=== PATIENT | male | born 1955 | race Caucasian/White ===

== ENCOUNTER 2016-11-08 14:06 | Inpatient (IN) | payer BC ==
[~2016-11-08] VITALS: Ht 175.3 cm; Wt 113.8 kg
[~2016-11-08 14:06] MED LIST: ASPI-664 PO; CLOP75TA27 PO; CRES10 PO; DIAZ-90 PO; GLYB1TAB3 PO; LANT3I SC; METO-448 PO; VALS1TAB64 PO
[2016-11-08] MEDS ORDERED: FAMOTIDINE 20 MG TAB PO STA (19:37)
[2016-11-08] MEDS ORDERED: ONDANSETRON 4 MG INJ IV STA ×2 (19:37→20:52)
[2016-11-08] MEDS ORDERED: LIDOCAINE/MYLANTA 40 ML BTL PO STA (19:37)
[2016-11-08] MEDS ORDERED: SOD CHLORIDE 0.9% 1,000 ML IV STA (19:37)
[2016-11-08] MEDS ORDERED: morphine 4 MG/ML VIAL IV STA ×2 (19:37→20:52)
[2016-11-08] MEDS ORDERED: BELLADONNA/PHENOBARBITAL TAB PO STA (19:37)
[2016-11-08 19:53] LABS: BASOPHILS % 0.2 % (0.0-2.0); EOSINOPHILS % 0.1 % (0.0-7.0); HEMATOCRIT 45.9 % (42.0-52.0); HEMOGLOBIN 15.6 g/dl (14.0-18.0); LYMPHOCYTES # 1.1 10^3/ul (0.8-2.9); LYMPHOCYTES % 11.5 % (15.0-51.0); MEAN CORPUSCULAR HEMOGLOBIN 29.4 pg (29.0-33.0); MEAN CORPUSCULAR HGB CONC 34.1 g/dl (32.0-37.0); MEAN CORPUSCULAR VOLUME 86.3 fl (82.0-101.0); MEAN PLATELET VOLUME 8.2 fl (7.4-10.4); MONOCYTE # 0.6 10^3/ul (0.3-0.9); NEUTROPHIL # 7.9 10^3/ul (1.6-7.5); NEUTROPHILS % 82.2 % (39.0-77.0); PLATELET COUNT 244 10^3/UL (140-440); RED BLOOD COUNT 5.32 10^6/ul (4.70-6.10); RED CELL DISTRIBUTION WIDTH 13.1 % (11.5-14.5); UNCORRECTED WBC 9.6 10^3/ul (4.8-10.8); WHITE BLOOD COUNT 9.6 10^3/ul (4.8-10.8)
[2016-11-08 19:54] LABS: CONDITION 1
[2016-11-08 20:05] LABS: ALBUMIN 4.6 g/dl (3.3-4.9); CHLORIDE 97 mmol/L (97-110)
[2016-11-08 20:06] LABS: POTASSIUM 4.7 mmol/L (3.5-5.1); SODIUM 141 mmol/L (135-144)
[2016-11-08 20:08] LABS: ALANINE AMINOTRANSFERASE 759 IU/L (13-69); ALBUMIN/GLOBULIN RATIO 1.35; ALKALINE PHOSPHATASE 270 IU/L (42-121); ANION GAP 21 (8-16); ASPARTATE AMINO TRANSFERASE 430 IU/L (15-46); BILIRUBIN,INDIRECT 1.3 mg/dl (0-1.1); BILIRUBIN,TOTAL 1.5 mg/dl (0.2-1.3); BLOOD UREA NITROGEN 17 mg/dl (7-20); CARBON DIOXIDE 28 mmol/L (21-31); CREATININE 0.85 mg/dl (0.61-1.24); GLUCOSE 309 mg/dl (70-220)
[2016-11-08 20:09] LABS: CALCIUM 9.8 mg/dl (8.4-10.2)
[2016-11-08 20:22] LABS: TROPONIN-I < 0.010 ng/ml (0.00-0.12)
--- NOTE | 2016-11-08 20:37 | RADRPT ---
PROCEDURE: XR Chest. CLINICAL INDICATION: Abdominal pain TECHNIQUE: Semi erect AP Portable chest. COMPARISON: No pertinent prior examinations were submitted for comparison. FINDINGS: The cardiomediastinal silhouette is normal. Lung volumes are diminished. No focal infiltrates are seen. The osseous structures are unremarkable. There is no intra-abdominal free air, assuming the p atient is positioned adequately upright. IMPRESSION: No acute findings. RPTAT: HIKT .Camden Burroughs MD, MD Date Time Electronically viewed and signed by .Camden Burroughs MD, on 11/08/2016 20:37 .T/
[2016-11-08] MEDS ORDERED: PIPER-TAZO 3.375 GM IV (PMX) 100 ML IVPB ONE (21:00)
[2016-11-08] MEDS ORDERED: SOD CHLORIDE 0.9% 1,000 ML IV ONE (21:00)
[2016-11-08] MEDS ORDERED: GLYB1TAB3 PO (21:13)
[2016-11-08] MEDS ORDERED: METO-448 PO (21:14)
[2016-11-08] MEDS ORDERED: ASPI-664 PO (21:14)
[2016-11-08] MEDS ORDERED: VALS1TAB78 PO (21:15)
[2016-11-08] MEDS ORDERED: CRES10 PO (21:16)
[2016-11-08] MEDS ORDERED: INSU300I SQ (21:17)
[2016-11-08] MEDS ORDERED: CLOP75TA4 PO (21:17)
[2016-11-08] MEDS ORDERED: TAMS0.4C2 PO (21:24)
[2016-11-08 21:55] VITALS: TEMP 98.3
--- NOTE | 2016-11-08 22:03 | RADRPT ---
PROCEDURE: Abdominal ultrasound, limited. CLINICAL INDICATION: Abdominal pain. TECHNIQUE: Multiple real-time images were acquired of the patient's right upper abdomen utilizing a high resolution transducer. Examination is limited due to the patient's body habitus. COMPARISON: None FINDINGS: The liver demonstrates increased echogenicity and size measuring 20.7 cm. There is no focal mass or intrahepatic biliary ductal dilatation. The portal vein is patent. The gallbladder is not distend ed. No gallstones are identified. There is no pericholecystic fluid or gallbladder wall thickening . The common bile duct measures 5.0 mm in maximal dimension. The pancreas is obscured by overlying bowel gas. No free fluid is identified. The right kidney is normal size and echogenicity measuring 14.6 cm. There is no focal renal mass or echogenic calculus identified. There is no obstructive uropathy. IMPRESSION: Enlarged liver with fatty infiltration. Pancreas obscured by overlying bowel gas. .Andrew Jones MD, Date Time Electronically viewed and signed by .Andrew Jones MD, MD on 11/08/2016 22:02 .T/
--- NOTE | 2016-11-08 22:10 | ERA ---
ER Documentation Chief Complaint Date/Time DATE: 11/08/16 TIME: 21:59 Chief Complaint SOB, EPIGASTRIC PAIN, HX OF IN PER PT HPI 61-year-old man complains of severe right upper quadrant epigastric abdominal pain with nausea, diaphoresis, and shortness of breath beginning the afternoon today after eating 2 tacos. He states he had a similar milder episode a few evenings ago after eating a meal as well, which resolved spontaneously. He denies regular episodes of abdominal pain, denies fevers or chills, no vomiting or diarrhea, no blood per rectum or melena, no complaints of chest pain. Patient denies cough, no calf or leg swelling, no headache or blurry vision. ROS All systems reviewed and are negative except as per history of present illness. Medications Home Meds Reported Medications Tamsulosin Hcl* (Tamsulosin Hcl*) 0.4 Mg Cap.er.24h, 0.4 MG PO DAILY, CAP 11/08/16 Insulin Glargine,Hum.rec.anlog (Jaylene Trejo) 300 Unit/1 Ml Insuln.pen, 50 UNIT SQ BID 11/08/16 Clopidogrel Bisulfate* (Clopidogrel Bisulfate*) 75 Mg Tablet, 75 MG PO DAILY, # 30 TAB 11/08/16 Rosuvastatin Calcium* (Crestor*) 10 Mg Tablet, 10 MG PO QHS, #30 TAB 11/08/16 Valsartan-Hydrochlorothiazide (Valsartan-HCTZ) 160-25 Mg Tablet, 1 TAB PO DAILY , #30 TAB 11/08/16 Aspirin* (Aspirin* EC) 81 Mg Tablet.dr, 81 MG PO DAILY, TAB 11/08/16 Metoprolol Tartrate* (Lopressor*) 25 Mg Tab, 25 MG PO BID, #60 TAB 11/08/16 Glyburide/Metformin HCl (Glucovance 5-500 mg Tablet) 1 Each Tablet, 1 EACH PO BID, TAB 11/08/16 Discontinued Reported Medications Rosuvastatin Calcium* (Crestor*) 10 Mg Tablet, 10 MG PO QHS, #30 TAB 11/16/15 Valsartan-Hydrochlorothiazide (Diovan HCT) 160-25 Mg Tablet, 1 TAB PO DAILY, TAB 11/16/15 Glyburide, Micro-Metformin Hcl (Glyburide-Metformin) 5-500 Tab, 1 TAB PO BID, TAB 11/16/15 Insulin Glargine* (Lantus*) 100 Unit/Ml Soln, 40 UNIT SC QPM, EA 08/31/15 Insulin Glargine* (Lantus*) 100 Unit/Ml Soln, 50 UNIT SC QAM, EA 08/31/15 Discontinued Scripts Diazepam* (Valium*) 5 Mg Tablet, 5 MG PO QHS Y for MUSCLE SPASMS, #10 TAB Prov:SUSANA FLORENCE DO 07/23/16 Metoprolol Tartrate* (Lopressor*) 25 Mg Tab, 25 MG PO Q12 for 30 Days, TAB Prov:Brenda CROWEZULEIMAJULIA Vega 09/03/15 Clopidogrel Bisulfate (Clopidogrel) 75 Mg Tab, 75 MG PO DAILY for 30 Days Prov:Brenda CROWEZULEIMAJULIA 09/03/15 Aspirin* (Aspirin* EC) 81 Mg Tabec, 81 MG PO DAILY for 30 Days Prov:NEPTALI CROWE 09/03/15 Allergies Allergies: Coded Allergies: No Known Allergy (Unverified , 11/08/16) PMhx/Soc Obesity, hypertension, diabetes mellitus, previous myocardial infarction, SVT, coronary artery disease with obstructive coronary artery lesion which previously could not be stented History of Surgery: No Anesthesia Reaction: No Hx Neurological Disorder: No Hx Respiratory Disorders: No Hx Cardiac Disorders: Yes (IN 2016, HTN, DYSLIPIDEMIA) Hx Psychiatric Problems: No Hx Miscellaneous Medical Probl: No Hx Alcohol Use: No Hx Substance Use: No Hx Tobacco Use: No Smoking Status: Former smoker FmHx Family History: No diabetes Physical Exam Vitals Vital Signs Date Time Temp Pulse Resp B/P Pulse Ox O2 Delivery O2 Flow Rate FiO2 11/08/16 21:55 98.3 103 17 151/89 95 Room Air 11/08/16 19:30 98.3 106 17 154/92 96 11/08/16 14:11 98.3 108 17 137/84 95 Physical Exam GENERAL: Well-developed, well-nourished, in pain, afebrile HEENT: Moist mucous membranes, pink conjunctiva, no cervical spine tenderness or step-off deformities, no goiter, no jaundice or icterus, extraocular movements intact without pain. No submandibular induration, and no pharyngeal erythema NEURO: Alert and oriented 3, cranial nerves II through XII intact bilaterally, pupils equal round reactive to light, no focal deficits or facial asymmetry, sensation intact distally Strength 5/5 in upper and lower extremities bilaterally CARDIAC: Tachycardic and regular, no murmurs rubs or gallops LUNGS: Clear bilaterally no wheezing crackles or stridor ABDOMEN: Protuberant tender abdomen, no rigidity or rebound, no psoas sign no obturator sign. Normoactive bowel sounds SKIN: Warm and dry to touch, no abrasions, contusions, or hematomas, no lacerations, no ecchymosis, no target lesions, and without ulcers EXTREMITIES: No clubbing cyanosis or edema, calves are bilaterally symmetrical, no Homans sign, no popliteal cord sign. Distal pulses equal and bilateral PSYCH: Normal affect without agitation or irritability Result Diagram: 11/08/16193911/08/161939 Results 24 hrs Laboratory Tests Test 11/08/16 19:40 Alanine Aminotransferase (ALT/SGPT) 759IU/L Albumin 4.6g/dl Albumin/Globulin Ratio 1.35 Alkaline Phosphatase 270IU/L Anion Gap 21 Aspartate Amino Transf (AST/SGOT) 430IU/L Basophils # 0.010^3/ul Basophils % 0.2% Blood Urea Nitrogen 17mg/dl Calcium Level 9.8mg/dl Carbon Dioxide Level 28mmol/L Chloride Level 97mmol/L Creatinine 0.85mg/dl Direct Bilirubin 0.20mg/dl Eosinophils # 0.010^3/ul Eosinophils % 0.1% Globulin 3.40g/dl Glucose Level 309mg/dl Hematocrit 45.9% Hemoglobin 15.6g/dl Indirect Bilirubin 1.3mg/dl Lipase 95956M/L Lymphocytes # 1.110^3/ul Lymphocytes % 11.5% Mean Corpuscular Hemoglobin 29.4pg Mean Corpuscular Hemoglobin Concent 34.1g/dl Mean Corpuscular Volume 86.3fl Mean Platelet Volume 8.2fl Monocytes # 0.610^3/ul Monocytes % 6.0% Neutrophils # 7.910^3/ul Neutrophils % 82.2% Nucleated Red Blood Cells # 0.010^3/ul Nucleated Red Blood Cells % 0.0/100WBC Platelet Count 60315^3/UL Potassium Level 4.7mmol/L Red Blood Count 5.3210^6/ul Red Cell Distribution Width 13.1% Sodium Level 141mmol/L Total Bilirubin 1.5mg/dl Total Protein 8.0g/dl Troponin I < 0.010ng/ml White Blood Count 9.610^3/ul Current Medications Medications (Trade) Dose Ordered Sig/Lorenzo Route PRN Reason Start Time Stop Time Status Last Admin Dose Admin Sodium Chloride (NS) 1,000 ml @ 1,000 mls/hr Q1H STAT IV 11/08/16 19:37 11/08/16 20:36 DC 11/08/16 19:57 Morphine Sulfate (morphine) 4 mg ONCE STAT IV 11/08/16 19:37 11/08/16 19:39 DC 11/08/16 19:51 Ondansetron HCl (Zofran Inj) 4 mg ONCE STAT IV 11/08/16 19:37 11/08/16 19:39 DC 11/08/16 19:51 Famotidine (Pepcid) 40 mg ONCE STAT PO 11/08/16 19:37 11/08/16 19:39 DC 11/08/16 19:51 Miscellaneous Medication (Gi Cocktail (2)) 40 ml ONCE STAT PO 11/08/16 19:37 11/08/16 19:39 DC 11/08/16 19:51 Belladonna/ Phenobarbital () 2 tab ONCE STAT PO 11/08/16 19:37 11/08/16 19:39 DC 11/08/16 19:51 Morphine Sulfate (morphine) 4 mg ONCE STAT IV 11/08/16 20:52 11/08/16 20:56 DC 11/08/16 21:02 Ondansetron HCl 4 mg 4 mg ONCE STAT IV 11/08/16 20:52 11/08/16 20:56 DC 11/08/16 21:02 Sodium Chloride 1,000 ml @ 1,000 mls/hr Q1H ONCE IV 11/08/16 21:00 11/08/16 21:59 DC 11/08/16 21:15 Piperacillin Sod/ Tazobactam Sod (Zosyn 3.375gm/ 100 ml (Pmx)) 100 ml @ 200 mls/hr ONCE ONCE IVPB 11/08/16 21:00 11/08/16 21:29 DC 11/08/16 21:14 Procedures/MDM IV line was established patient was placed on cardiac exercise physiologist rhythm strip revealed a sinus tachycardia at about 110 bpm with upright P and T waves. Patient was afebrile. EKG performed, read by me revealed a sinus tachycardia 108 bpm, normal axis, narrow QRS complex, no concerning ST elevations or depressions noted. Chest X-ray 1V Interpreted by me: Soft Tissue: No acute abnormalities Bones: No acute abnormalities Mediastinum/Cardiac Silhouette/Lungs: No acute abnormalities I administered 1 L normal saline intravenously, GI cocktail 50 cc p.o., famotidine 40 mg p.o., morphine 4 mg IV, and Zofran 4 mg IV with good effect. For continued pain the patient was given another dose of morphine 4 mg IV, Zofran 4 mg IV and a second liter of normal saline bolus. CBC was unremarkable, electrolytes revealed dehydration and hyperglycemia, BUN/ creatinine ratio was elevated at 17/0.9, liver function tests were abnormal with elevated AST ALT levels and lipase over 10,000. Alkaline phosphatase elevated at 270. Troponin was negative. Critical Care: Time: 37 minutes, this was time separate from other procedures. Treatments/Evaluations: Close monitoring and treatment of unstable vital signs, cardiorespiratory, and neurologic status, while maintaining tight balance of fluid, respiratory, and cardiac interventions. Gallbladder ultrasound was performed revealing shadowing concerning for gallstones although due to body habitus imaging was difficult no obvious pericholecystic fluid or gallstones are noted. Please refer to radiologist dictation for full report. CT scan of the abdomen and pelvis revealed a acute pancreatitis with inflammatory changes. Please refer to radiologist dictation for full report. Patient also received Zosyn 3.375 g IV. Surgical consultation was obtained with on-call surgeon, I spoke to him regarding the patient's presentation, symptomatology, and labs. He kindly agreed to consult the patient. Patient will be admitted to hospitalist. Departure Diagnosis: Primary Impression: Pancreatitis Qualified Code: K85.90 - Acute pancreatitis, unspecified complication status, unspecified pancreatitis type Additional Impressions: Abdominal pain Qualified Code: R10.13 - Epigastric pain Transaminitis Dehydration Condition: AMY Banks MD Nov 08, 2016 22:10
--- NOTE | 2016-11-08 22:33 | RADRPT ---
PROCEDURE: CT abdomen and pelvis without contrast. CLINICAL INDICATION: Epigastric pain TECHNIQUE: CT scan of the abdomen and pelvis without contrast was performed on a multislice CT [facility] utilizing axial imaging from the lung bases through the pubis symphysis. The patient was scann ed without intravenous contrast. Sagittal and coronal reformatted images were made. The CTDIvol is 22.07 mGy and the DLP is 1472.87 mGycm. One of the following 3 dose reduction techniques were used during this CT examination: automated exp osure control; adjustment of the mA and /or kV according to patient size; or use of iterative recons truciton technique. COMPARISON: CT abdomen pelvis 09/02/2015 FINDINGS: The lung bases are remarkable for bibasilar discoid atelectasis. The heart size is normal. Vascula r calcifications are present of the coronary arteries. No pericardial or pleural effusion is presen t. Diffuse fatty infiltration of the liver is noted without focal lesions and mild hepatomegaly is pres ent. A punctate calcification is noted which measures 3 mm in the anterior segment of the right lob e compatible with prior exposure granulomatous disease. The visualized spleen is normal. The pancre as demonstrates peripancreatic inflammation and edema involving the body and tail of the pancreas. This is compatible with acute pancreatitis. No evidence for pseudocysts or masses are present . The visualized gallbladder is normal. The bilateral adrenal glands are normal. The kidneys demonstrat e no evidence for hydroureteronephrosis or nephroureterolithiasis. The aorta demonstrates vascular calcifications without evidence for aneurysmal dilatation. The visualized bowel demonstrates mild diverticulosis without evidence for acute diverticulitis or a ppendicitis. The visualized pelvis demonstrates marked enlargement of the prostate gland with prostatic calcifica tions present. AP dimension is 5.5 cm x 6.8 cm in transverse dimensions. The urinary bladder is ma rkedly distended. No evidence for ascites or pneumoperitoneum is present. The imaged osseous structures demonstrate degenerative changes of the bilateral sacroiliac joints an d the imaged spine. IMPRESSION: 1. Acute peripancreatic edema and inflammation compatible with acute pancreatitis. No evidence for pseudocysts are present. 2. Mild diffuse fatty infiltration of the liver and hepatomegaly. 3. Marked prostatic enlargement measuring 5.5 cm AP by 6.8 cm in transverse dimensions. Recommend correlation with prostate-specific antigen and follow-up. 4. Mild degenerative changes of the imaged spine 5. Mild atherosclerotic vascular disease A call report was made to JAY REYES at 11/08/2016 10:28:40 PM following the completion of the e xamination by the undersigned. RPTAT: HDC .Gloria Marquez MD, Date Time Electronically viewed and signed by .Gloria Marquez MD, on 11/08/2016 22:32 .C/
[2016-11-08 23:15] VITALS: BP 140/77; PULSE 105; RESP 20; Ht 175.3 cm; Wt 113.8 kg
[2016-11-08] MEDS ORDERED: ONDANSETRON 4 MG INJ IV PRN (23:30)
[2016-11-08] MEDS: SOD CHLORIDE 0.9% 1,000 ML IV SCH (23:37)
[2016-11-08] MEDS: morphine 4 MG/ML VIAL IV PRN (23:38)
[2016-11-08] MEDS: FAMOTIDINE 20 MG INJ IV SCH (23:38)
[2016-11-09] MEDS: INSULIN ASPART [NOVOLOG] 3 ML PEN SC SCH ×5 (00:11→20:15)
[2016-11-09] MEDS: ACCUCHECK XX SCH (02:00)
[2016-11-09] MEDS ORDERED: ACCUCHECK XX SCH (02:00)
[2016-11-09] MEDS: morphine 4 MG/ML VIAL IV PRN ×2 (03:08→21:36)
[2016-11-09] MEDS: SOD CHLORIDE 0.9% 1,000 ML IV SCH ×3 (07:44→20:18)
[2016-11-09 07:45] VITALS: BP 137/79; RESP 20
[2016-11-09] MEDS ORDERED: metFORMIN 500 MG TAB PO SCH (08:00)
[2016-11-09] MEDS: INSULIN GLARGINE [LANtus] 3 ML PEN SC SCH (09:00)
[2016-11-09] MEDS ORDERED: CLOPIDOGREL 75 MG TAB PO SCH (09:00)
[2016-11-09] MEDS ORDERED: VALSARTAN 160 MG TAB PO SCH (09:00)
[2016-11-09] MEDS ORDERED: HYDROCHLOROTHIAZIDE 25 MG TAB PO SCH (09:00)
[2016-11-09] MEDS: METOPROLOL 25 MG TAB PO SCH ×2 (09:15→20:14)
[2016-11-09] MEDS: TAMSULOSIN (SR) 0.4 MG CAP PO SCH (09:16)
[2016-11-09] MEDS: ASPIRIN (EC) 81 MG TAB PO SCH (09:16)
[2016-11-09] MEDS: FAMOTIDINE 20 MG INJ IV SCH ×2 (09:16→20:14)
[2016-11-09 09:44] LABS: HAAIG REFLEX REFLEX FILED
--- NOTE | 2016-11-09 09:53 | CONS ---
Date/Time of Note Date/Time of Note DATE: 11/09/16 TIME: 09:46 Assessment/Plan Assessment/Plan Chief Complaint/Hosp Course 61-year-old obese male with acute pancreatitis * Etiology includes gallstones versus hypertriglyceridemia versus idiopathic * CT and ultrasound negative for gallstones or signs of acute cholecystitis. * Recommend MRCP to evaluate for gallstones and choledocholithiasis * Continue nothing by mouth, IV fluid hydration, pain control * Monitor LFTs and lipase level The case was discussed with the patient and the nurse at the bedside. Further recommendations will be made based on patient's clinical course and results of diagnostic studies. Problems: Consultation Date/Type/Reason Admit Date/Time Nov 08, 2016 at 21:16 Date of Consultation: Nov 09, 2016 Type of Consultation: GENERAL SURGERY Reason for Consultation Abdominal pain Hx of Present Illness Patient is an obese 61-year-old [place] male who presented to the emergency room complaining of a 1 day history of abdominal pain. He describes the pain as being located in the epigastric area. He denies any nausea/vomiting, diarrhea/ constipation, or fever/chills. On arrival to the emergency room he was found to have a lipase level of 10,246. His LFTs were also elevated. He had an ultrasound which was negative for gallstones. A CT scan of the abdomen and pelvis showed findings consistent with acute pancreatitis. There were no gallstones or gallbladder wall thickening on CT scan. He currently states his pain is improved. He denies any heavy drinking. The patient has a history of coronary artery disease and myocardial infarction status post angioplasty. He is on aspirin and Plavix. He also has a history of diabetes. A 14 point review of systems was conducted and was negative except for that which was mentioned in the history of present illness. Past Medical History Obesity, hypertension, diabetes mellitus, previous myocardial infarction, SVT, coronary artery disease with obstructive coronary artery lesion which previously could not be stented Past Surgical History Past Surgical Hx: other (sinus surgery) Social History Alcohol Use: rarely Smoking Status: Former smoker Exam/Review of Systems Vital Signs Vitals Vital Signs Date Time Temp Pulse Resp B/P Pulse Ox O2 Delivery O2 Flow Rate FiO2 11/09/16 07:45 98.8 106 20 137/79 92 11/08/16 23:15 Room Air Intake and Output 11/08/16 11/08/16 11/09/16 15:00 23:00 07:00 Intake Total 625 ml Output Total 400 ml Balance 225 ml Exam GENERAL: Obese, Awake, alert, oriented 3. No acute distress. SKIN: No jaundice. HEENT: PERRLA, EOMI, No Scleral Icterus NECK: Supple without JVD CARDIOVASCULAR: S1S2, regular rate and rhythm. No murmurs appreciated. RESPIRATORY: Clear to auscultation bilaterally. ABDOMEN: Obese, Soft, bowel sounds present, nondistended, there is minimal epigastric tenderness to deep palpation. There is no rebound or guarding. There is no evidence of diffuse peritonitis. EXTREMITIES: Free range of motion 4. No cyanosis, edema, or clubbing. NEUROLOGIC: Cranial nerves II-XII are intact. Sensation is intact grossly. Results Result Diagram: 11/08/16193911/08/161939 Results 24 hrs Laboratory Tests Test 11/08/16 19:40 11/08/16 23:29 11/09/16 02:16 11/09/16 04:35 Alanine Aminotransferase (ALT/SGPT) 759 H Albumin 4.6 Albumin/Globulin Ratio 1.35 Alkaline Phosphatase 270 H Anion Gap 21 H Aspartate Amino Transf (AST/SGOT) 430 H Basophils # 0.0 Basophils % 0.2 Blood Urea Nitrogen 17 Calcium Level 9.8 Carbon Dioxide Level 28 Chloride Level 97 Creatinine 0.85 Direct Bilirubin 0.20 Eosinophils # 0.0 Eosinophils % 0.1 Globulin 3.40 H Glucose Level 309 H Hematocrit 45.9 Hemoglobin 15.6 Indirect Bilirubin 1.3 H Lipase 84232 H Lymphocytes # 1.1 Lymphocytes % 11.5 L Mean Corpuscular Hemoglobin 29.4 Mean Corpuscular Hemoglobin Concent 34.1 Mean Corpuscular Volume 86.3 Mean Platelet Volume 8.2 Monocytes # 0.6 Monocytes % 6.0 Neutrophils # 7.9 H Neutrophils % 82.2 H Nucleated Red Blood Cells # 0.0 Nucleated Red Blood Cells % 0.0 Platelet Count 244 Potassium Level 4.7 Red Blood Count 5.32 Red Cell Distribution Width 13.1 Sodium Level 141 Total Bilirubin 1.5 H Total Protein 8.0 Troponin I < 0.010 White Blood Count 9.6 Bedside Glucose 230 H 198 Hemoglobin A1c 10.1 H Test 11/09/16 09:12 11/09/16 09:15 Bedside Glucose 155 Hepatitis B Core Total Antibody Pending Hepatitis B Surface Antigen Pending Hepatitis C Antibody Pending Medications Medications Current Medications Morphine Sulfate (morphine) 4 mg Q4H PRN IV PAIN Last administered on 03:08; Admin Dose 4 MG; Start 11/08/16 at 23:30 Famotidine (Pepcid Iv) 20 mg Q12 IV Last administered on 11/09/16 09:16; Admin Dose 20 MG; Start 11/08/16 at 23:30 Ondansetron HCl 4 mg 4 mg Q6H PRN IV NAUSEA AND/OR VOMITING Last administered on 11/08/16 23:47; Admin Dose 4 MG; Start 11/08/16 at 23:30 Sodium Chloride (NS) 1,000 ml @ 125 mls/hr Q8H IV Last administered on 07:44; Admin Dose 125 MLS/HR; Start 11/08/16 at 23:30 Diagnostic Test (Pha) (Accucheck) 1 ea 02 XX Last administered on 11/09/16 02: 00; Admin Dose 1 EA; Start 11/09/16 at 02:00 Aspirin (Halfprin) 81 mg DAILY PO Last administered on 11/09/16 09:16; Admin Dose 81 MG; Start 11/09/16 at 09:00 Clopidogrel Bisulfate (plaVIX) 75 mg DAILY PO Last administered on 11/09/16 09 :16; Admin Dose 75 MG; Start 11/09/16 at 09:00 Metoprolol Tartrate (Lopressor) 75 mg BID PO Last administered on 11/09/16 09: 15; Admin Dose 75 MG; Start 11/09/16 at 09:00 Tamsulosin HCl (Flomax) 0.4 mg DAILY PO Last administered on 11/09/16 09:16; Admin Dose 0.4 MG; Start 11/09/16 at 09:00 Valsartan (Diovan) 160 mg DAILY PO Last administered on 11/09/16 09:15; Admin Dose 160 MG; Start 11/09/16 at 09:00 Insulin Glargine (Lantus) 12 unit QAM SC ; Start 11/09/16 at 09:00 Hydrochlorothiazide (Hydrochlorothiazide) 25 mg DAILY PO Last administered on 09:16; Admin Dose 25 MG; Start 11/09/16 at 09:00 Procedures Procedures PROCEDURE: Abdominal ultrasound, limited. CLINICAL INDICATION: Abdominal pain. TECHNIQUE: Multiple real-time images were acquired of the patient's right upper abdomen utilizing a high resolution transducer. Examination is limited due to the patient's body habitus. COMPARISON: None FINDINGS: The liver demonstrates increased echogenicity and size measuring 20.7 cm. There is no focal mass or intrahepatic biliary ductal dilatation. The portal vein is patent. The gallbladder is not distended. No gallstones are identified. There is no pericholecystic fluid or gallbladder wall thickening. The common bile duct measures 5.0 mm in maximal dimension. The pancreas is obscured by overlying bowel gas. No free fluid is identified. The right kidney is normal size and echogenicity measuring 14.6 cm. There is no focal renal mass or echogenic calculus identified. There is no obstructive uropathy. IMPRESSION: Enlarged liver with fatty infiltration. Pancreas obscured by overlying bowel gas. .Andrew Jones MD, MD Date Time Electronically viewed and signed by .Andrew Jones MD, MD on 11/08/2016 22:02 .T/ CC: AMY THOMPSON MD PROCEDURE: CT abdomen and pelvis without contrast. CLINICAL INDICATION: Epigastric pain TECHNIQUE: CT scan of the abdomen and pelvis without contrast was performed on a multislice CT scanner utilizing axial imaging from the lung bases through the pubis symphysis. The patient was scanned without intravenous contrast. Sagittal and coronal reformatted images were made. The CTDIvol is 22.07 mGy and the DLP is 1472.87 mGycm. One of the following 3 dose reduction techniques were used during this CT examination: automated exposure control; adjustment of the mA and /or kV according to patient size; or use of iterative reconstruciton technique. COMPARISON: CT abdomen pelvis 09/02/2015 FINDINGS: The lung bases are remarkable for bibasilar discoid atelectasis. The heart size is normal. Vascular calcifications are present of the coronary arteries. No pericardial or pleural effusion is present. Diffuse fatty infiltration of the liver is noted without focal lesions and mild hepatomegaly is present. A punctate calcification is noted which measures 3 mm in the anterior segment of the right lobe compatible with prior exposure granulomatous disease. The visualized spleen is normal. The pancreas demonstrates peripancreatic inflammation and edema involving the body and tail of the pancreas. This is compatible with acute pancreatitis. No evidence for pseudocysts or masses are present . The visualized gallbladder is normal. The bilateral adrenal glands are normal. The kidneys demonstrate no evidence for hydroureteronephrosis or nephroureterolithiasis. The aorta demonstrates vascular calcifications without evidence for aneurysmal dilatation. The visualized bowel demonstrates mild diverticulosis without evidence for acute diverticulitis or appendicitis. The visualized pelvis demonstrates marked enlargement of the prostate gland with prostatic calcifications present. AP dimension is 5.5 cm x 6.8 cm in transverse dimensions. The urinary bladder is markedly distended. No evidence for ascites or pneumoperitoneum is present. The imaged osseous structures demonstrate degenerative changes of the bilateral sacroiliac joints and the imaged spine. IMPRESSION: 1. Acute peripancreatic edema and inflammation compatible with acute pancreatitis. No evidence for pseudocysts are present. 2. Mild diffuse fatty infiltration of the liver and hepatomegaly. 3. Marked prostatic enlargement measuring 5.5 cm AP by 6.8 cm in transverse dimensions. Recommend correlation with prostate-specific antigen and follow-up. 4. Mild degenerative changes of the imaged spine 5. Mild atherosclerotic vascular disease A call report was made to JAY REYES at 11/08/2016 10:28:40 PM following the completion of the examination by the undersigned. RPTAT: HDC .Gloria Marquez MD, MD Date Time Electronically viewed and signed by .Gloria Marquez MD, MD on 11/08/2016 22: 32 .C/ CC: AMY THOMPSON MD, MICHAEL A. MD Nov 09, 2016 09:53
[2016-11-09 09:58] LABS: BASOPHILS % 0.1 % (0.0-2.0); EOSINOPHILS % 0.3 % (0.0-7.0); HEMATOCRIT 41.7 % (42.0-52.0); HEMOGLOBIN 14.3 g/dl (14.0-18.0); LYMPHOCYTES # 0.9 10^3/ul (0.8-2.9); LYMPHOCYTES % 10.5 % (15.0-51.0); MEAN CORPUSCULAR HEMOGLOBIN 29.6 pg (29.0-33.0); MEAN CORPUSCULAR HGB CONC 34.2 g/dl (32.0-37.0); MEAN CORPUSCULAR VOLUME 86.8 fl (82.0-101.0); MONOCYTE # 0.5 10^3/ul (0.3-0.9); MONOCYTES % 5.7 % (0.0-11.0); NEUTROPHIL # 7.2 10^3/ul (1.6-7.5); NEUTROPHILS % 83.4 % (39.0-77.0); PLATELET COUNT 220 10^3/UL (140-440); RED BLOOD COUNT 4.81 10^6/ul (4.70-6.10); RED CELL DISTRIBUTION WIDTH 12.9 % (11.5-14.5); UNCORRECTED WBC 8.7 10^3/ul (4.8-10.8); WHITE BLOOD COUNT 8.7 10^3/ul (4.8-10.8)
[2016-11-09 09:59] LABS: ALBUMIN 3.8 g/dl (3.3-4.9); CHOL/HDL RATIO 5.3 RATIO
[2016-11-09 10:00] LABS: POTASSIUM 4.1 mmol/L (3.5-5.1)
[2016-11-09 10:02] LABS: ALBUMIN/GLOBULIN RATIO 1.22; BILIRUBIN,INDIRECT 0.9 mg/dl (0-1.1); BILIRUBIN,TOTAL 0.9 mg/dl (0.2-1.3); CREATININE 0.84 mg/dl (0.61-1.24); TOTAL PROTEIN 6.9 g/dl (6.1-8.1)
[2016-11-09 10:03] LABS: CALCIUM 9.1 mg/dl (8.4-10.2)
[2016-11-09 10:06] LABS: CONDITION 1
[2016-11-09] MEDS ORDERED: SOD CHLORIDE 0.9% 1,000 ML IV ONE (10:30)
[2016-11-09 10:31] LABS: PROSTATE SPECIFIC ANTIGEN 0.7 ng/ml (0.0-4.0)
--- NOTE | 2016-11-09 11:00 | PN ---
Date/Time of Note Date/Time of Note DATE: 11/09/16 TIME: 10:57 Assessment/Plan VTE Prophylaxis VTE Prophylaxis Intervention: LMWH Lines/Catheters IV C[facility] (from [facility]): Saline Lock Assessment/Plan Chief Complaint/Hosp Course Assessment/plan 1. Acute pancreatitis, ukn etio.. Consider DCing HCTZ vs autoimmune. MRCP pending. Stable, try diet tomorrow. 2. Chronic coronary artery disease/pci; continue aspirin Plavix 3. Hypertension, DC hctz 4. Metabolic syndrome 5. Ho SVT Problems: Subjective 24 Hr Interval Summary Free Text/Dictation Hospitalist coverage: Less pain, no vomiting. No dyspnea. Denies alcohol. No previous pancreatitis. No new medications. On hctz. No family history of pancreatitis. Father with colon cancer. Exam/Review of Systems Vital Signs Vitals Vital Signs Date Time Temp Pulse Resp B/P Pulse Ox O2 Delivery O2 Flow Rate FiO2 11/09/16 07:45 98.8 106 20 137/79 92 11/08/16 23:15 Room Air Intake and Output 11/08/16 11/08/16 11/09/16 15:00 23:00 07:00 Intake Total 625 ml Output Total 400 ml Balance 225 ml Exam Constitutional: alert Respiratory: clear to auscultation Cardiovascular: regular rate and rhythm (no murmur rub gallop) Gastrointestinal: non-tender (bowel sounds diminished, nondistended. No R R G. Obese. No flank ecchymosis.), soft Extremities: other (no edema) Results Result Diagram: 11/09/16 0915 11/09/16 0915 Results 24 hrs Laboratory Tests Test 11/08/16 19:40 11/08/16 23:29 11/09/16 02:16 11/09/16 04:35 Alanine Aminotransferase (ALT/SGPT) 759 H Albumin 4.6 Albumin/Globulin Ratio 1.35 Alkaline Phosphatase 270 H Anion Gap 21 H Aspartate Amino Transf (AST/SGOT) 430 H Basophils # 0.0 Basophils % 0.2 Blood Urea Nitrogen 17 Calcium Level 9.8 Carbon Dioxide Level 28 Chloride Level 97 Creatinine 0.85 Direct Bilirubin 0.20 Eosinophils # 0.0 Eosinophils % 0.1 Globulin 3.40 H Glucose Level 309 H Hematocrit 45.9 Hemoglobin 15.6 Indirect Bilirubin 1.3 H Lipase 56649 H Lymphocytes # 1.1 Lymphocytes % 11.5 L Mean Corpuscular Hemoglobin 29.4 Mean Corpuscular Hemoglobin Concent 34.1 Mean Corpuscular Volume 86.3 Mean Platelet Volume 8.2 Monocytes # 0.6 Monocytes % 6.0 Neutrophils # 7.9 H Neutrophils % 82.2 H Nucleated Red Blood Cells # 0.0 Nucleated Red Blood Cells % 0.0 Platelet Count 244 Potassium Level 4.7 Red Blood Count 5.32 Red Cell Distribution Width 13.1 Sodium Level 141 Total Bilirubin 1.5 H Total Protein 8.0 Troponin I < 0.010 White Blood Count 9.6 Bedside Glucose 230 H 198 Hemoglobin A1c 10.1 H Test 11/09/16 09:12 11/09/16 09:15 Bedside Glucose 155 Alanine Aminotransferase (ALT/SGPT) 499 H Albumin 3.8 Albumin/Globulin Ratio 1.22 Alkaline Phosphatase 192 H Anion Gap 16 Aspartate Amino Transf (AST/SGOT) 146 #H Basophils # 0.0 Basophils % 0.1 Blood Urea Nitrogen 16 Calcium Level 9.1 Carbon Dioxide Level 28 Chloride Level 103 Cholesterol Level 129 Cholesterol/HDL Ratio 5.3 Creatinine 0.84 Direct Bilirubin 0.00 # Eosinophils # 0.0 Eosinophils % 0.3 Globulin 3.10 Glucose Level 160 # HDL Cholesterol 24 L Hematocrit 41.7 L Hemoglobin 14.3 Hepatitis B Core Total Antibody Pending Hepatitis B Surface Antigen NEGATIVE Hepatitis C Antibody Pending Indirect Bilirubin 0.9 LDL Cholesterol, Calculated 62 Lipase 2512 H Lymphocytes # 0.9 Lymphocytes % 10.5 L Mean Corpuscular Hemoglobin 29.6 Mean Corpuscular Hemoglobin Concent 34.2 Mean Corpuscular Volume 86.8 Mean Platelet Volume 8.0 Monocytes # 0.5 Monocytes % 5.7 Neutrophils # 7.2 Neutrophils % 83.4 H Nucleated Red Blood Cells # 0.0 Nucleated Red Blood Cells % 0.0 Platelet Count 220 Potassium Level 4.1 Prostate Specific Antigen 0.7 Red Blood Count 4.81 Red Cell Distribution Width 12.9 Sodium Level 143 Total Bilirubin 0.9 Total Protein 6.9 # Triglycerides Level 213 H White Blood Count 8.7 Medications Medications Current Medications Morphine Sulfate (morphine) 4 mg Q4H PRN IV PAIN Last administered on t 03:08; Admin Dose 4 MG; Start 11/08/16 at 23:30 Famotidine (Pepcid Iv) 20 mg Q12 IV Last administered on 11/09/16 09:16; Admin Dose 20 MG; Start 11/08/16 at 23:30 Ondansetron HCl 4 mg 4 mg Q6H PRN IV NAUSEA AND/OR VOMITING Last administered on 11/08/16 23:47; Admin Dose 4 MG; Start 11/08/16 at 23:30 Sodium Chloride (NS) 1,000 ml @ 125 mls/hr Q8H IV Last administered on 07:44; Admin Dose 125 MLS/HR; Start 11/08/16 at 23:30 Diagnostic Test (Pha) (Accucheck) 1 ea 02 XX Last administered on 11/09/16 02: 00; Admin Dose 1 EA; Start 11/09/16 at 02:00 Aspirin (Halfprin) 81 mg DAILY PO Last administered on 11/09/16 09:16; Admin Dose 81 MG; Start 11/09/16 at 09:00 Clopidogrel Bisulfate (plaVIX) 75 mg DAILY PO Last administered on 11/09/16 09 :16; Admin Dose 75 MG; Start 11/09/16 at 09:00 Metoprolol Tartrate (Lopressor) 75 mg BID PO Last administered on 11/09/16 09: 15; Admin Dose 75 MG; Start 11/09/16 at 09:00 Tamsulosin HCl (Flomax) 0.4 mg DAILY PO Last administered on 11/09/16 09:16; Admin Dose 0.4 MG; Start 11/09/16 at 09:00 Insulin Glargine 12 unit 12 unit QAM SC ; Start 11/09/16 at 09:00 Piperacillin Sod/ Tazobactam Sod 100 ml @ 25 mls/hr TID@02,,18 IVPB ; Start 11/09/16 at 18:00; Status UNV Sodium Chloride (NS) 1,000 ml @ 1,000 mls/hr Q1H ONCE IV ; Start 11/09/16 at 10 :30; Stop 11/09/16 at 11:29; Status UNV Enoxaparin Sodium (Lovenox) 40 mg DAILY SC ; Start 11/09/16 at 10:30; Status UNV LADONNA ROBERTS MD Nov 09, 2016 11:00
[2016-11-09 11:13] LABS: HEPATITIS B CORE ANTIBODY NEGATIVE (NEGATIVE)
--- NOTE | 2016-11-09 12:00 | HP ---
DATE OF ADMISSION: 11/08/2016 TIME SEEN: 2300. CHIEF COMPLAINT: Abdominal pain. HISTORY OF PRESENT ILLNESS: The patient is a 61-year-old morbidly obese male with a history of jose nary artery disease, hypertension, diabetes, dyslipidemia who presented to the emergency department with abdominal pain. He states that his abdominal pain is diffuse and was started on Tuesday 2 to 3 days ago after he ate. He said he took Pepcid and Brinda-[place] and his symptoms improved. He say s he ate 2 tacos and shortly after he started experiencing similar pain but was much more in intensi ty and, as such, he decided to come here for evaluation. He denied any nausea, vomiting, diarrhea o r constipation. He also denied chest pain, shortness of breath, fever or chills. On presentation t o the ER he was found to a lipase of 10,000 as well as abnormal liver enzymes. CT abdomen and pelvi s and abdominal ultrasound shows acute pancreatitis, fatty liver and enlarged prostate. On further questioning, the patient denied a history of alcohol and he went on to say that the last time he had a drink was 2 weeks ago on where he had 3 shots of the cognac. Currently his abdominal pain is much improved with pain medication. REVIEW OF SYSTEMS: A 12-point review of systems was performed and is negative except as in HPI. PAST MEDICAL HISTORY: As per HPI. PAST SURGICAL HISTORY: He had a cardiac catheterization without placement of stents. SOCIAL HISTORY: Drinks alcohol occasionally. Denied a history of tobacco or illicit drug use. ALLERGIES: NO KNOWN DRUG ALLERGIES. HOME MEDICATIONS 1. Metoprolol. 2. Amlodipine. 3. Lipitor. 4. Glipizide. PHYSICAL EXAMINATION: VITAL SIGNS: Stable. GENERAL: Morbidly obese male lying in bed in no acute distress. He is answering questions appropri ately and able to speak in full sentences. HEENT: No obvious head deformity. Pupils are reactive to light. Extraocular muscles intact. CARDIOVASCULAR: Tachycardic with regular rhythm. CHEST: Clear. ABDOMEN: Morbidly obese. There is minimal tenderness to deep palpation in the epigastric and periu mbilical area without guarding, rebound tenderness or rigidity. EXTREMITIES: No edema. NEUROLOGIC: No focal deficit. LABORATORY: Pertinent positive results as mentioned in HPI. IMAGING: Right upper quadrant ultrasound and CT abdomen and pelvis was result as mentioned in HPI. IMPRESSION: 1. Acute pancreatitis. 2. Abdominal pain secondary to above. 3. Elevated transaminases. 4. History of coronary artery disease. 5. History of hypertension. 6. History of diabetes. 7. History of dyslipidemia. 8. Morbid obesity. 9. Fatty liver. PLAN: I will keep him n.p.o. He will receive IV fluids. We will provide pain medication as needed . We will check the triglycerides to see if that is the cause of his pancreatitis. We will also ob tain an MRCP to further evaluate the biliary system. He will actually be kept NPO except meds so th at we continue his medications including his Plavix and aspirin. Further workup and management to toshia armstrong per clinical course. Dictated By: DARRELL WIGGINS/NAVA Conf#: [id number] DID#: [id number]
[2016-11-09] MEDS: ENOXAPARIN 40 MG/0.4 ML SYG SC SCH (12:37)
[2016-11-09] MEDS ORDERED: GLUCAGON 1 MG INJ IM PRN (15:00)
[2016-11-09] MEDS ORDERED: DEXTROSE 50% 50 ML SYRINGE IV PRN ×2 (15:00)
[2016-11-09] MEDS ORDERED: GLUCOSE GEL 15 GRAM TUBE BUCCAL PRN (15:00)
[2016-11-09] MEDS ORDERED: GLUCOSE GEL 15 GRAM TUBE PO PRN ×2 (15:00)
[2016-11-09] MEDS: PIPER-TAZO 3.375 GM IV (PMX) 100 ML IVPB SCH (18:05)
[2016-11-09 20:30] VITALS: BP 147/81; RESP 19
[2016-11-09] MEDS ORDERED: LORAZEPAM 2 MG INJ IV ONE (21:30)
[2016-11-10] MEDS: PIPER-TAZO 3.375 GM IV (PMX) 100 ML IVPB SCH ×3 (01:49→18:40)
[2016-11-10] MEDS: ACCUCHECK XX SCH (01:49)
[2016-11-10 06:08] LABS: BASOPHILS % 0.2 % (0.0-2.0); EOSINOPHILS # 0.1 10^3/ul (0.0-0.5); EOSINOPHILS % 0.8 % (0.0-7.0); HEMATOCRIT 40.1 % (42.0-52.0); HEMOGLOBIN 13.8 g/dl (14.0-18.0); LYMPHOCYTES # 1.2 10^3/ul (0.8-2.9); LYMPHOCYTES % 12.2 % (15.0-51.0); MEAN CORPUSCULAR HEMOGLOBIN 29.9 pg (29.0-33.0); MEAN CORPUSCULAR HGB CONC 34.4 g/dl (32.0-37.0); MEAN CORPUSCULAR VOLUME 86.9 fl (82.0-101.0); MEAN PLATELET VOLUME 8.1 fl (7.4-10.4); MONOCYTE # 0.9 10^3/ul (0.3-0.9); MONOCYTES % 9.7 % (0.0-11.0); NEUTROPHIL # 7.5 10^3/ul (1.6-7.5); NEUTROPHILS % 77.1 % (39.0-77.0); PLATELET COUNT 234 10^3/UL (140-440); RED BLOOD COUNT 4.62 10^6/ul (4.70-6.10); RED CELL DISTRIBUTION WIDTH 12.9 % (11.5-14.5); UNCORRECTED WBC 9.8 10^3/ul (4.8-10.8); WHITE BLOOD COUNT 9.8 10^3/ul (4.8-10.8)
[2016-11-10 06:10] LABS: INR 1.03; PROTIME 13.5 Sec (12.2-14.2); PT RATIO 1.1
[2016-11-10 06:17] LABS: ALBUMIN 3.7 g/dl (3.3-4.9); POTASSIUM 3.9 mmol/L (3.5-5.1)
[2016-11-10 06:19] LABS: BILIRUBIN,INDIRECT 0.9 mg/dl (0-1.1); BILIRUBIN,TOTAL 0.9 mg/dl (0.2-1.3); CREATININE 0.93 mg/dl (0.61-1.24)
[2016-11-10 06:19] LABS: PHOSPHORUS 4.6 mg/dl (2.5-4.9)
[2016-11-10 06:20] LABS: ALBUMIN/GLOBULIN RATIO 1.12; CALCIUM 8.7 mg/dl (8.4-10.2)
[2016-11-10 06:20] LABS: MAGNESIUM 1.8 mg/dl (1.7-2.5)
[2016-11-10 06:29] LABS: CONDITION 1
[2016-11-10 06:48] LABS: THYROID STIMULATING HORMONE 0.673 MIU/L (0.465-4.680)
[2016-11-10 07:59] VITALS: BP 129/62; RESP 22
[2016-11-10] MEDS: INSULIN ASPART [NOVOLOG] 3 ML PEN SC SCH ×3 (08:00→17:50)
[2016-11-10 08:20] LABS: AADO2 Arterial 33.6 mmHg (7.0-24.0); Allen Test ACCEPTAB; Arterial COHb 1.4 % (0.0-3.0); Arterial Fraction of Oxyhgb 91.3 % (93.0-99.0); Arterial MetHb 0.1 % (0.0-1.5); Arterial Total Hemglobin 14.7 g/dl (12.0-18.0); MODE ROOM AIR
--- NOTE | 2016-11-10 08:23 | RADRPT ---
PROCEDURE: MRCP. CLINICAL INDICATION: Abdominal pain, pancreatitis. TECHNIQUE: MRCP was performed. Patient was examined without contrast. 3-D coronal rotating MIP i mages of the biliary tree are available for review. COMPARISON: CT, 11/08/2016 FINDINGS: Hepatomegaly is noted, measuring 23 cm, without gross evidence of focal hepatic mass. No cholelithi asis or pericholecystic inflammation is seen. There is no intra or extrahepatic biliary dilatation. No common duct stone, stricture or filling defect is seen. Mild peripancreatic inflammation/edema is seen, consistent with acute pancreatitis. No evidence of focal pancreatic mass or pancreatic ductal dilatation is identified. No loculated peripancreatic fl uid collection is seen. Spleen, adrenal glands and kidneys are unremarkable except for benign renal cysts. No obstructive uropathy is identified. The stomach is partially collapsed, but appears grossly unremarkable. Abdominal aorta is normal in caliber. There is no retroperitoneal or alex hepatis lymphadenopathy. No bowel obstruction or abs cess is identified. IMPRESSION: 1. Findings compatible with mild acute pancreatitis, as above, grossly stable when compared to the prior CT. 2. No evidence of cholelithiasis, cholecystitis, biliary dilatation, or choledocholithiasis is seen . 3. Hepatomegaly is noted. RPTAT: EE .Gabriel Maya MD, MD Date Time Electronically viewed and signed by .Gabriel Maya MD, on 11/10/2016 08:23 .R/
--- NOTE | 2016-11-10 08:24 | RADRPT ---
PROCEDURE: XR Chest. CLINICAL INDICATION: Cough. TECHNIQUE: Single frontal chest x-ray. COMPARISON: 11/08/2016 FINDINGS: The lungs volumes are diminished. There are compressive changes with vascular crowding and basilar atelectasis. No acute infiltrate is seen. The cardiomediastinal silhouette is normal. The surroun ding soft tissues and osseous structures are unremarkable. IMPRESSION: 1. Low lung volumes with compressive changes and basilar atelectasis. 2. No acute infiltrate is seen. RPTAT: EE .Gabriel Maya MD, MD Date Time Electronically viewed and signed by .Gabriel Maya MD, on 11/10/2016 08:23 .R/
[2016-11-10] MEDS: INSULIN GLARGINE [LANtus] 3 ML PEN SC SCH ×2 (09:00→10:59)
[2016-11-10] MEDS: ASPIRIN (EC) 81 MG TAB PO SCH (09:00)
[2016-11-10] MEDS: METOPROLOL 25 MG TAB PO SCH (09:00)
[2016-11-10] MEDS: TAMSULOSIN (SR) 0.4 MG CAP PO SCH (09:00)
[2016-11-10] MEDS: FAMOTIDINE 20 MG INJ IV SCH (09:00)
[2016-11-10] MEDS: SOD CHLORIDE 0.9% 1,000 ML IV SCH (09:01)
[2016-11-10] MEDS: ENOXAPARIN 40 MG/0.4 ML SYG SC SCH (09:02)
[2016-11-10] MEDS ORDERED: METO-448 PO (10:50)
[2016-11-10] MEDS ORDERED: FENOFIBRATE 48 MG TAB PO SCH (12:00)
--- NOTE | 2016-11-10 12:12 | PN ---
Date/Time of Note Date/Time of Note DATE: 11/10/16 TIME: 12:09 Assessment/Plan Lines/Catheters [facility] Saline Lock Assessment/Plan Assessment/Plan 61-year-old obese male with acute pancreatitis * MRCP shows findings consistent with acute pancreatitis. There is no evidence of cholelithiasis, choledocholithiasis, or acute cholecystitis * Etiology includes solitary gallstone which may have been passed versus hypertriglyceridemia versus idiopathic * Patient clinically improved and tolerating diet * Lipase levels, LFTs trending downwards * No indication for surgical intervention at this time * Patient surgically stable for discharge home once medically cleared Subjective 24 Hr Interval Summary Doing well. Denies abdominal pain. Tolerating diet. Afebrile. Exam/Review of Systems Vital Signs Vitals Vital Signs Date Time Temp Pulse Resp B/P Pulse Ox O2 Delivery O2 Flow Rate FiO2 11/10/16 07:59 98.0 97 22 129/62 99 11/08/16 23:15 Room Air Intake and Output 11/09/16 11/09/16 11/10/16 15:00 23:00 07:00 Intake Total 250 ml 2000 ml 650 ml Output Total 1300 ml 500 ml Balance 250 ml 700 ml 150 ml Exam Free Text/Dictation GENERAL: Obese, Awake, alert, oriented 3. No acute distress. SKIN: No jaundice. HEENT: PERRLA, EOMI, No Scleral Icterus CARDIOVASCULAR: S1S2, regular rate and rhythm. No murmurs appreciated. RESPIRATORY: Clear to auscultation bilaterally. ABDOMEN: Obese, Soft, bowel sounds present, nontender to palpation EXTREMITIES: Free range of motion 4. No cyanosis, edema, or clubbing. Results Result Diagram: 11/10/16 0500 11/10/16 0500 JOHN MURRIETA MD Nov 10, 2016 12:12
--- NOTE | 2016-11-10 15:09 | PDOCDIS ---
Discharge Instructions DIAGNOSIS Discharge Diagnosis: 1. Acute pancreatitis 2. Hypertriglyceridemia 3. Type 2 diabetes 4. Obesity CONDITION Patient Condition: Stable HOME CARE INSTRUCTIONS: Diet Instructions: Low Fat /CholesterolSpecial Diet: 1800-calorie diet FOLLOW UP/APPOINTMENTS Appointments 1. Follow-up with her primary care provider within a week ANTHONY JOYA Nov 10, 2016 15:09
--- NOTE | 2016-11-10 15:15 | DS ---
Date/Time of Note Date/Time of Note DATE: 11/10/16 TIME: 15:09 Discharge Summary Admission/Discharge Info Admit Date/Time Nov 08, 2016 at 21:16 Discharge Date/Time Final Diagnosis 1. Acute pancreatitis. With abdominal pain 2. Transaminitis 3. CAD. 4. History of hypertension. 5. History of diabetes. 6. History of dyslipidemia. 7. Morbid obesity. Patient Condition: Stable Consults 1. Dr. Eyal Brown Hospital Course This is a 61-year-old male morbidly obese, with history of CAD, hypertension, diabetes, dyslipidemia, who came to [facility] due to reports of abdominal pain that started roughly on 11/06/2016. Did report that the pain occurred after he ate. He did report taking [id number] Pepcid and Brinda- [place] which did help his symptoms shortly but afterwards he started to have pain again. He came to [facility] for further evaluation. Upon examination he did have CT scan of the abdomen and pelvis that did show acute pancreatitis. Patient was seen by general surgeon. He also was optimized with IV fluids and we did keep him npo. Patient was provided analgesics as needed. Patient during his stay did improve. After review by surgeon patient did not need any further surgical intervention. His lipase levels did downward trend. We did otherwise optimized the patient medically. He was continued on antiplatelet therapy for his history of CAD and he was continued on insulin regimen for his diabetes. Patient was noted with hypertriglyceridemia and he was provided with fenofibrate. Patient was also noted to be morbidly obese and we did advised about weight reduction. Hydrochlorothiazide stopped due to possible etiology of pancreatitis. He was also noted that during his stay after IV hydration and his liver enzymes did downward trend. During his course of stay did improve. He was instructed to follow-up with his primary care physician as outpatient. The plan of care was discussed with the patient and patient did verbalize understanding. On the day of discharge patient was in stable condition Discussed plan of care with Dr. Burnette [place] Meds Reported Medications Tamsulosin Hcl* (Tamsulosin Hcl*) 0.4 Mg Cap.er.24h, 0.4 MG PO DAILY, CAP 11/08/16 Insulin Glargine,Hum.rec.anlog (Jaylene Trejo) 300 Unit/1 Ml Insuln.pen, 50 UNIT SQ BID 11/08/16 Clopidogrel Bisulfate* (Clopidogrel Bisulfate*) 75 Mg Tablet, 75 MG PO DAILY, # 30 TAB 11/08/16 Rosuvastatin Calcium* (Crestor*) 10 Mg Tablet, 10 MG PO QHS, #30 TAB 11/08/16 Valsartan-Hydrochlorothiazide (Valsartan-HCTZ) 160-25 Mg Tablet, 1 TAB PO DAILY , #30 TAB 11/08/16 Aspirin* (Aspirin* EC) 81 Mg Tablet.dr, 81 MG PO DAILY, TAB 11/08/16 Metoprolol Tartrate* (Lopressor*) 25 Mg Tab, 75 MG PO BID, #60 TAB 11/08/16 Glyburide/Metformin HCl (Glucovance 5-500 mg Tablet) 1 Each Tablet, 1 EACH PO BID, TAB 11/08/16 Discontinued Reported Medications Rosuvastatin Calcium* (Crestor*) 10 Mg Tablet, 10 MG PO QHS, #30 TAB 11/16/15 Valsartan-Hydrochlorothiazide (Diovan HCT) 160-25 Mg Tablet, 1 TAB PO DAILY, TAB 11/16/15 Glyburide, Micro-Metformin Hcl (Glyburide-Metformin) 5-500 Tab, 1 TAB PO BID, TAB 11/16/15 Insulin Glargine* (Lantus*) 100 Unit/Ml Soln, 40 UNIT SC QPM, EA 08/31/15 Insulin Glargine* (Lantus*) 100 Unit/Ml Soln, 50 UNIT SC QAM, EA 08/31/15 Discontinued Scripts Diazepam* (Valium*) 5 Mg Tablet, 5 MG PO QHS Y for MUSCLE SPASMS, #10 TAB Prov:SUSANA FLORENCE DO 07/23/16 Metoprolol Tartrate* (Lopressor*) 25 Mg Tab, 25 MG PO Q12 for 30 Days, TAB Prov:NEPTALI CROWE 09/03/15 Clopidogrel Bisulfate (Clopidogrel) 75 Mg Tab, 75 MG PO DAILY for 30 Days Prov:NEPTALI CROWE 09/03/15 Aspirin* (Aspirin* EC) 81 Mg Tabec, 81 MG PO DAILY for 30 Days Prov:NEPTALI CROWE 09/03/15 Follow-up Plan HOME CARE INSTRUCTIONS: Diet Instructions: Low Fat /CholesterolSpecial Diet: 1800-calorie diet FOLLOW UP/APPOINTMENTS Appointments 1. Follow-up with her primary care provider within a week Pending Labs Laboratory Tests Test 11/09/16 17:08 11/09/16 19:55 11/10/16 05:00 11/10/16 06:00 Bedside Glucose 115mg/dL (70-220) 143mg/dL (70-220) Alanine Aminotransferase (ALT/SGPT) 311IU/L (13-69) Albumin 3.7g/dl (3.3-4.9) Albumin/Globulin Ratio 1.12 Alkaline Phosphatase 157IU/L (42-121) Anion Gap 18 (8-16) Aspartate Amino Transf (AST/SGOT) 62IU/L (15-46) Basophils # 0.010^3/ul (0.0-0.1) Basophils % 0.2% (0.0-2.0) Blood Urea Nitrogen 15mg/dl (7-20) Calcium Level 8.7mg/dl (8.4-10.2) Carbon Dioxide Level 29mmol/L (21-31) Chloride Level 101mmol/L (97-110) Creatinine 0.93mg/dl (0.61-1.24) Direct Bilirubin 0.00mg/dl (0.00-0.20) Eosinophils # 0.110^3/ul (0.0-0.5) Eosinophils % 0.8% (0.0-7.0) Globulin 3.30g/dl (1.3-3.2) Glucose Level 93mg/dl (70-220) Hematocrit 40.1% (42.0-52.0) Hemoglobin 13.8g/dl (14.0-18.0) Indirect Bilirubin 0.9mg/dl (0-1.1) Lactate Dehydrogenase 368IU/L (313-618) Lipase 442U/L (23-300) Lymphocytes # 1.210^3/ul (0.8-2.9) Lymphocytes % 12.2% (15.0-51.0) Mean Corpuscular Hemoglobin 29.9pg (29.0-33.0) Mean Corpuscular Hemoglobin Concent 34.4g/dl (32.0-37.0) Mean Corpuscular Volume 86.9fl (82.0-101.0) Mean Platelet Volume 8.1fl (7.4-10.4) Monocytes # 0.910^3/ul (0.3-0.9) Monocytes % 9.7% (0.0-11.0) Neutrophils # 7.510^3/ul (1.6-7.5) Neutrophils % 77.1% (39.0-77.0) Nucleated Red Blood Cells # 0.010^3/ul (0.0-0.0) Nucleated Red Blood Cells % 0.0/100WBC (0.0-0.0) Platelet Count 33019^3/UL (140-440) Potassium Level 3.9mmol/L (3.5-5.1) Red Blood Count 4.6210^6/ul (4.70-6.10) Red Cell Distribution Width 12.9% (11.5-14.5) Sodium Level 144mmol/L (135-144) Total Bilirubin 0.9mg/dl (0.2-1.3) Total Protein 7.0g/dl (6.1-8.1) Triglycerides Level 211mg/dl (0-149) White Blood Count 9.810^3/ul (4.8-10.8) INR International Normalized Ratio 1.03 Magnesium Level 1.8mg/dl (1.7-2.5) Phosphorus Level 4.6mg/dl (2.5-4.9) Prothrombin Time 13.5Sec (12.2-14.2) Prothrombin Time Ratio 1.1 Thyroid Stimulating Hormone (TSH) 0.673MIU/L (0.465-4.680) Test 11/10/16 07:52 11/10/16 08:00 11/10/16 11:55 Bedside Glucose 104mg/dL (70-220) 144mg/dL (70-220) Arterial Blood HCO3 28.0mmol/L (22.0-26.0) Arterial Blood Base Excess 3.0mmol/L (-3.0-3) Arterial Blood Oxygen Saturation 92.7mmHG (95.0-98.0) William Test ACCEPTAB Arterial Blood Gas Puncture Site Right Radial Arterial Blood Carboxyhemoglobin 1.4% (0.0-3.0) Arterial Blood Date Drawn 11/10/2016 8:08:49 AM Arterial Blood Methemoglobin 0.1% (0.0-1.5) Arterial Blood pCO2 (Temp correct) 44.3mmhg (35-45) Arterial Blood pH (Temp corrected) 7.419 (7.350-7.450) Arterial Blood pO2 (Temp corrected) 63.1mmHG (80-100.0) Blood Gas A-a O2 Differential 33.6mmHg (7.0-24.0) Blood Gas Modality ROOM AIR Blood Gas Notified Time 11/10/2016 8:20:36 AM Blood Gas Notified Whom JLD Blood Gas Specimen Source Blood arterial Blood Gas Temperature 37.0C FiO2 21.0% Oxyhemoglobin Percent 91.3% (93.0-99.0) Total Hemoglobin 14.7g/dl (12.0-18.0) ANTHONY JOYA Nov 10, 2016 15:15
[2016-11-10] MEDS ORDERED: NOVO3I SC (17:31)
[2016-11-10] MEDS ORDERED: LANT3I SC (17:33)
[2016-11-10] MEDS ORDERED: INSULIN ASPART [NOVOLOG] 3 ML PEN SC SCH (17:35)
[2016-11-10 19:45] VITALS: BP 152/90; PULSE 105; RESP 20
== END 2016-11-10 19:49 | disposition home or self-care (01) | DRG 440 ==
LOC: E/R 14:06 → PP2 21:16
PROVIDERS: ADMIT Internal Medicine; ATTEND Internal Medicine
DX: K85.90 Acute pancreatitis without necrosis or infection, unspecified (principal); K76.0 Fatty (change of) liver, not elsewhere classified; I25.10 Atherosclerotic heart disease of native coronary artery without angina pectoris; R74.0 Nonspecific elevation of levels of transaminase and lactic acid dehydrogenase [LDH]; I10 Essential (primary) hypertension; E11.9 Type 2 diabetes mellitus without complications; Z79.4 Long term (current) use of insulin; E78.5 Hyperlipidemia, unspecified; E66.01 Morbid (severe) obesity due to excess calories; Z68.37 Body mass index [BMI] 37.0-37.9, adult; N40.0 Benign prostatic hyperplasia without lower urinary tract symptoms
CPT/HCPCS: 36415; 36600; 71010; 74176; 74181; 76705; 80053; 80061; 82803; 82962; 83036; 83615; 83690; 83735; 84100; 84153; 84154; 84443; 84478; 84484; 85025; 85610; 86704; 86706; 86709; 86803; 87340; 93005; 96374; 96375; 96376; J1650; J1815; J2060; J2270; J2405; J2543; J7030

== ENCOUNTER 2016-11-13 03:28 | Emergency (ER) | payer BC ==
[~2016-11-13] VITALS: Ht 177.8 cm; Wt 116.0 kg
[~2016-11-13 03:28] MED LIST changes: -CLOP75TA27 PO; +CLOP75TA4 PO; -DIAZ-90 PO; -GLYB1TAB3 PO; +NOVO3I SC; +TAMS0.4C2 PO; -VALS1TAB64 PO
[2016-11-13 03:33] VITALS: Ht 177.8 cm; Wt 116.0 kg
[2016-11-13] MEDS ORDERED: KETOROLAC 30 MG INJ IM STA (04:03)
--- NOTE | 2016-11-13 04:21 | ERD ---
ER Documentation Chief Complaint Date/Time DATE: 11/13/16 TIME: 04:16 Chief Complaint bck pain running down to right leg x 1 month HPI 61-year-old male with a history of type 2 diabetes and hypertension presents to the emergency department complaining of right-sided back pain for the past month. Patient states the pain has been intermittent but gradually worsening and is currently a 10 out of 10 constant throbbing pain located in the right lower back extending down his right lower extremity. Patient notes occasional numbness and tingling of his right leg. He notes worsening pain when standing or sitting for prolonged amount of time. He has noticed mild relief when changing positions. Patient states he has attempted to treat his pain with Motrin and Tylenol with no relief. He denies any bowel or bladder incontinence or saddle anesthesia. He denies any history of fall or trauma and has never received an x-ray of his low back. He denies any dysuria, hematuria, oliguria, nausea, vomiting, diarrhea. Denies any abdominal pain, chest pain, shortness of breath. ROS All systems reviewed and are negative except as per history of present illness. Medications Home Meds Active Scripts Cyclobenzaprine Hcl* (Cyclobenzaprine Hcl*) 10 Mg Tablet, 10 MG PO TID, #15 TAB Prov:BERTIN LUIS PA-C 11/13/16 Naproxen* (Naprosyn*) 500 Mg Tablet, 500 MG PO BID for 7 Days, TAB Prov:BERTIN LUIS PA-C 11/13/16 Methylprednisolone* (Medrol* DOSE PACK) 4 Mg/Dose-Pack Tab.ds.pk, 4 MG PO . DIRECTED for 5 Days, PACKET Prov:BERTIN LUIS PA-C 11/13/16 Hydrocodone/Acetaminophen ([place] 10-325 Tablet) 1 Each Tablet, 1 TAB PO Q6H Y for PAIN, #20 TAB Prov:BERTIN LUIS PA-C 11/13/16 Insulin Glargine* (Lantus*) 100 Unit/Ml Soln, 15 UNIT SC QAM for 30 Days Prov:ANTHONY JOYA 11/10/16 Insulin Aspart* (Novolog Insulin Pen*) 100 Unit/Ml Soln, 4 UNIT SC WITH MEALS for 30 Days Prov:ANTHONY JOYA 11/10/16 Metoprolol Tartrate* (Lopressor*) 25 Mg Tab, 75 MG PO BID, #60 TAB Prov:ANTHONY JOYA 11/10/16 Reported Medications Tamsulosin Hcl* (Tamsulosin Hcl*) 0.4 Mg Cap.er.24h, 0.4 MG PO DAILY, CAP 11/08/16 Clopidogrel Bisulfate* (Clopidogrel Bisulfate*) 75 Mg Tablet, 75 MG PO DAILY, # 30 TAB 11/08/16 Rosuvastatin Calcium* (Crestor*) 10 Mg Tablet, 10 MG PO QHS, #30 TAB 11/08/16 Aspirin* (Aspirin* EC) 81 Mg Tablet.dr, 81 MG PO DAILY, TAB 11/08/16 Discontinued Reported Medications Insulin Glargine,Hum.rec.anlog (Jaylene Trejo) 300 Unit/1 Ml Insuln.pen, 50 UNIT SQ BID 11/08/16 Valsartan-Hydrochlorothiazide (Valsartan-HCTZ) 160-25 Mg Tablet, 1 TAB PO DAILY , #30 TAB 11/08/16 Glyburide/Metformin HCl (Glucovance 5-500 mg Tablet) 1 Each Tablet, 1 EACH PO BID, TAB 11/08/16 Rosuvastatin Calcium* (Crestor*) 10 Mg Tablet, 10 MG PO QHS, #30 TAB 11/16/15 Valsartan-Hydrochlorothiazide (Diovan HCT) 160-25 Mg Tablet, 1 TAB PO DAILY, TAB 11/16/15 Glyburide, Micro-Metformin Hcl (Glyburide-Metformin) 5-500 Tab, 1 TAB PO BID, TAB 11/16/15 Insulin Glargine* (Lantus*) 100 Unit/Ml Soln, 40 UNIT SC QPM, EA 08/31/15 Insulin Glargine* (Lantus*) 100 Unit/Ml Soln, 50 UNIT SC QAM, EA 08/31/15 Discontinued Scripts Diazepam* (Valium*) 5 Mg Tablet, 5 MG PO QHS Y for MUSCLE SPASMS, #10 TAB Prov:SUSANA FLORENCE DO 07/23/16 Metoprolol Tartrate* (Lopressor*) 25 Mg Tab, 25 MG PO Q12 for 30 Days, TAB Prov:NEPTALI CROWE 09/03/15 Clopidogrel Bisulfate (Clopidogrel) 75 Mg Tab, 75 MG PO DAILY for 30 Days Prov:NEPTALI CROWE 09/03/15 Aspirin* (Aspirin* EC) 81 Mg Tabec, 81 MG PO DAILY for 30 Days Prov:NEPTALI CROWE 09/03/15 Allergies Allergies: Coded Allergies: No Known Allergy (Unverified , 11/08/16) PMhx/Soc History of Surgery: Yes (TONSILLECTOMY, SINUS SURGERY ) Anesthesia Reaction: No Hx Neurological Disorder: No Hx Respiratory Disorders: No Hx Cardiac Disorders: Yes (HTN, [place] 08/2015) Hx Psychiatric Problems: No Hx Miscellaneous Medical Probl: Yes (DYSLIPIDEMIA ) Hx Alcohol Use: Yes (OCCASSIONALLY DRINKS ) Hx Substance Use: No Hx Tobacco Use: No Smoking Status: Never smoker Physical Exam Vitals Vital Signs Date Time Temp Pulse Resp B/P Pulse Ox O2 Delivery O2 Flow Rate FiO2 11/13/16 04:39 97.4 90 15 142/78 97 Room Air 11/13/16 04:10 97.8 20 149/70 98 11/13/16 03:33 97.8 87 20 149/70 98 Physical Exam Const: Well-developed, nontoxic-appearing, well-hydrated, and mild to Head: Atraumatic Eyes: Normal Conjunctiva ENT: Normal External Ears, Nose and Mouth. Neck: Full range of motion..~ No meningismus. Resp: Clear to auscultation bilaterally Cardio: Regular rate and rhythm, no murmurs Abd: Soft, non tender, non distended. Normal bowel sounds Skin: No petechiae or rashes Back: Full range of motion at hip joint. Tenderness to palpation along the right piriformis muscle area. No evidence of bruising, erythema. No lower leg swelling or erythema. Sensation intact equal bilaterally lower extremities. Pedal pulses equal and bilateral. No midline or flank tenderness Ext: No cyanosis, or edema Neur: Awake and alert Psych: Normal Mood and Affect Results 24 hrs Current Medications Medications (Trade) Dose Ordered Sig/Lorenzo Route PRN Reason Start Time Stop Time Status Last Admin Dose Admin Ketorolac Tromethamine (Toradol) 30 mg ONCE STAT IM 11/13/16 04:03 11/13/16 04:04 DC 11/13/16 04:13 Procedures/MDM 61 year old male with history of diabetes and hypertension who presents with a one-month history of intermittent low back pain. PROCEDURE: XR Lumbar Spine. CLINICAL INDICATION: Right leg pain TECHNIQUE: Three views of the lumbar spine are available for review COMPARISON: None available FINDINGS: No fracture or dislocation seen. Degenerative disk changes L3-4 through L5-S1 greatest at L5-S1 where they are moderate. Facet hypertrophy in lower lumbar spine. Calcification in abdominal aorta and iliac arteries. Degenerative disk changes in visualized thoracic spine. IMPRESSION: Degenerative changes. Please see above. RPTAT: HJES .Chris Waller MD, MD Date Time Electronically viewed and signed by .Chris Waller MD, MD on 11/13/2016 04:54 .S/ CC: BERTIN LUIS PA-C X-ray LS-Spine 3V Interpreted by me: Bones: No fracture Joints: No dislocation Foreign body: None Based on patient's history of present illness and physical examination the decision was made to discharge. The patient was re-evaluated after ED treatment and stabilizing measures, and symptoms have improved. There is no evidence of life threatening injuries or illnesses at this time. On re-examination, patient resting in no distress, stable vital signs, reports feeling better and safe for discharge with outpatient follow up with PMD in 1-2 days. Patient to obtain referral for orthopedic surgeon if pain persists. Patient given return precautions. BERTIN LIUS PA-C Nov 13, 2016 04:21
[2016-11-13] MEDS ORDERED: CYCL-319 PO (04:24)
[2016-11-13] MEDS ORDERED: NAPR-260 PO (04:24)
[2016-11-13] MEDS ORDERED: HYDR-902 PO (04:24)
[2016-11-13] MEDS ORDERED: MED4DP PO (04:24)
[2016-11-13 04:39] VITALS: BP 142/78; PULSE 90; RESP 15; TEMP 97.4
--- NOTE | 2016-11-13 04:54 | RADRPT ---
PROCEDURE: XR Lumbar Spine. CLINICAL INDICATION: Right leg pain TECHNIQUE: Three views of the lumbar spine are available for review COMPARISON: None available FINDINGS: No fracture or dislocation seen. Degenerative disk changes L3-4 through L5-S1 greatest at L5-S1 whe re they are moderate. Facet hypertrophy in lower lumbar spine. Calcification in abdominal aorta an d iliac arteries. Degenerative disk changes in visualized thoracic spine. IMPRESSION: Degenerative changes. Please see above. RPTAT: HJES .Chris Waller MD, MD Date Time Electronically viewed and signed by .Chris Waller MD, MD on 11/13/2016 04:54 .S/
== END 2016-11-13 05:12 | disposition home or self-care (01) ==
LOC: FTE 03:28
DX: M54.5 Low back pain (principal); I10 Essential (primary) hypertension; E11.9 Type 2 diabetes mellitus without complications; Z79.4 Long term (current) use of insulin; Z79.82 Long term (current) use of aspirin
CPT/HCPCS: 72100; 96372; 99284; J1885

== ENCOUNTER 2016-12-05 02:02 | Emergency (ER) | payer BC ==
[~2016-12-05] VITALS: Ht 170.2 cm; Wt 115.5 kg
[~2016-12-05 02:02] MED LIST changes: +CYCL-319 PO; +HYDR-902 PO; +MED4DP PO; +NAPR-260 PO
[2016-12-05 02:11] VITALS: Ht 170.2 cm; Wt 115.5 kg
[2016-12-05] MEDS ORDERED: KETOROLAC 60 MG INJ IM STA (04:07)
[2016-12-05] MEDS ORDERED: HYDR-902 PO (05:36)
[2016-12-05] MEDS ORDERED: IBUP800T25 PO (05:36)
[2016-12-05 05:48] VITALS: BP 138/76; PULSE 78; RESP 16
--- NOTE | 2016-12-06 16:36 | ERD ---
ER Documentation Chief Complaint Date/Time DATE: 12/06/16 TIME: 16:33 Chief Complaint lower back pain radiating to right leg HPI This patient is a 7-year-old male with history of hypertension, type 2 diabetes , and chronic low back pain presenting to the emergency department for right paraspinal lumbar pain exacerbating over the past 3 weeks. The patient was seen here about 3 weeks ago and got prescriptions for Flexeril, Sonoita, naproxen. He states only mild relief with these medications. He states pain is currently a 10 out of 10. Patient denies any loss of bowel or bladder function, no heavy lifting, no other injuries, no saddle anesthesia reported. The patient has had very similar symptoms in the past. No other symptoms or alleviating or exacerbating factors to report at this time. ROS All systems reviewed and are negative except as per history of present illness. Medications Home Meds Active Scripts Ibuprofen* (Motrin*) 800 Mg Tab, 800 MG PO Q6, #20 TAB Prov:DARRELL BANKS PA-C 12/05/16 Hydrocodone/Acetaminophen ([place] 10-325 Tablet) 1 Each Tablet, 1 TAB PO Q6H Y for PAIN, #7 TAB Prov:DARRELL BANKS PA-C 12/05/16 Cyclobenzaprine Hcl* (Cyclobenzaprine Hcl*) 10 Mg Tablet, 10 MG PO TID, #15 TAB Prov:BERTIN LUIS PA-C 11/13/16 Naproxen* (Naprosyn*) 500 Mg Tablet, 500 MG PO BID for 7 Days, TAB Prov:BERTIN LUIS PA-C 11/13/16 Methylprednisolone* (Medrol* DOSE PACK) 4 Mg/Dose-Pack Tab.ds.pk, 4 MG PO . DIRECTED for 5 Days, PACKET Prov:BERTIN LUIS PA-C 11/13/16 Hydrocodone/Acetaminophen ([place] 10-325 Tablet) 1 Each Tablet, 1 TAB PO Q6H Y for PAIN, #20 TAB Prov:BERTIN LUIS PA-C 11/13/16 Insulin Glargine* (Lantus*) 100 Unit/Ml Soln, 15 UNIT SC QAM for 30 Days Prov:ANTHONY JOYA 11/10/16 Insulin Aspart* (Novolog Insulin Pen*) 100 Unit/Ml Soln, 4 UNIT SC WITH MEALS for 30 Days Prov:ANTHONY JOYA 11/10/16 Metoprolol Tartrate* (Lopressor*) 25 Mg Tab, 75 MG PO BID, #60 TAB Prov:ANTHONY JOYA 11/10/16 Reported Medications Tamsulosin Hcl* (Tamsulosin Hcl*) 0.4 Mg Cap.er.24h, 0.4 MG PO DAILY, CAP 11/08/16 Clopidogrel Bisulfate* (Clopidogrel Bisulfate*) 75 Mg Tablet, 75 MG PO DAILY, # 30 TAB 11/08/16 Rosuvastatin Calcium* (Crestor*) 10 Mg Tablet, 10 MG PO QHS, #30 TAB 11/08/16 Aspirin* (Aspirin* EC) 81 Mg Tablet.dr, 81 MG PO DAILY, TAB 11/08/16 Allergies Allergies: Coded Allergies: No Known Allergy (Unverified , 11/08/16) PMhx/Soc Medical and Surgical Hx: pt denies Surgical Hx History of Surgery: Yes (TONSILLECTOMY, SINUS SURGERY ) Anesthesia Reaction: No Hx Neurological Disorder: No Hx Respiratory Disorders: No Hx Cardiac Disorders: Yes (HTN, [place] 08/2015) Hx Psychiatric Problems: No Hx Miscellaneous Medical Probl: Yes (heart cath . hypertension. diabetic) Hx Alcohol Use: No Hx Substance Use: No Hx Tobacco Use: No FmHx Noncontributory for chief complaint Physical Exam Vitals Vital Signs Date Time Temp Pulse Resp B/P Pulse Ox O2 Delivery O2 Flow Rate FiO2 12/05/16 05:48 78 16 138/76 98 Room Air 12/05/16 02:11 97.7 96 18 133/71 98 Physical Exam INITIAL VITAL SIGNS: Reviewed by me. GENERAL: Alert and interactive. No acute distress. HEAD: Head is normocephalic and atraumatic. EYES: EOMI. No scleral icterus. No conjunctival injection. ENT: Moist mucosa. NECK: Supple. Full range of motion. RESPIRATORY: Normal respiratory effort. Clear breath sounds bilaterally. No wheezing, rales, or rhonchi. CV: Regular rate and rhythm. Normal S1 S2. No S3 or S4. No murmurs. ABDOMEN: Soft, non-distended, non-tender. No guarding. No rebound. No masses. EXTREMITIES: No deformity. BACK: Positive straight leg raise test on the right side. Negative straight leg raise test on the left. There is tenderness to palpation of the paraspinal lumbar muscles worse on the right side. SKIN: Warm and dry. NEUROLOGIC: Alert and oriented x 4. Speech is normal. Moves all extremities equally. No motor or sensory deficits noted. Results 24 hrs Current Medications Medications (Trade) Dose Ordered Sig/Lorenzo Route PRN Reason Start Time Stop Time Status Last Admin Dose Admin Ketorolac Tromethamine (Toradol) 60 mg ONCE STAT IM 12/05/16 04:07 12/05/16 05:49 DC 12/05/16 04:33 Procedures/MDM 61-year-old male presents secondary to complaints of right-sided paraspinal lumbar pain. On examination his vitals are within normal limits. Patient was given IM Toradol in the department and is feeling improved on reevaluation. Patient stable for outpatient management with prescriptions for Sonoita and naproxen. Patient understands diagnosis and treatment plan. All questions and concerns were addressed. I doubt very much cauda equina, epidural abscess, lumbar disc herniation, and other emergent conditions. The patient was hemodynamically stable prior to discharge. Departure Diagnosis: Primary Impression: Back pain Condition: Fair Patient Instructions: Back Pain (Acute Or Chronic) Referrals: JAMISON SORIANO Additional Instructions: Make an appointment with the provided pain management doctor for better control of your back pain. Follow-up with your primary care physician within 1 week. Return to the emergency department immediately should you have any new or worsening symptoms, uncontrolled fevers, or other unexplained symptoms. Take all medications as directed. DARRELL BANKS PA-C Dec 06, 2016 16:36
== END 2016-12-05 05:49 | disposition home or self-care (01) ==
LOC: FTE 02:02
DX: M54.5 Low back pain (principal); I10 Essential (primary) hypertension; E11.9 Type 2 diabetes mellitus without complications; Z79.4 Long term (current) use of insulin; Z79.82 Long term (current) use of aspirin
CPT/HCPCS: 96372; 99284; J1885

== ENCOUNTER 2017-03-03 20:36 | Emergency (ER) | payer BC, OTHER ==
[~2017-03-03] VITALS: Ht 175.3 cm; Wt 117.5 kg
[~2017-03-03 20:36] MED LIST changes: +IBUP800T25 PO
[2017-03-03 20:40] VITALS: Ht 175.3 cm; Wt 117.5 kg
--- NOTE | 2017-03-03 21:08 | ERA ---
ER Documentation Chief Complaint Date/Time DATE: 03/03/17 TIME: 21:08 Chief Complaint RUQ ABD PAIN RADIATING TO HIS BACK & DIFFICULTY URINATING HPI The patient is a 61-year-old male, presenting to the ER because of right upper quadrant abdominal pain radiating to the back, associated with dysuria for 1 day. The pain is 8/10. He had similar symptoms previously, he denies fever, chills, neck pain, chest pain, nausea, vomiting, diarrhea, constipation. He does not smoke nor drink Past medical history: Diabetes mellitus, hypertension, CAD, dyslipidemia Past surgical history: Tonsillectomy, sinus surgery ROS All systems reviewed and are negative except as per history of present illness. Medications Home Meds Active Scripts Hydrocodone/Acetaminophen ([place] 5-325 Tablet) 1 Each Tablet, 1 TAB PO Q6H Y for PAIN, #7 TAB Prov:JOHN MAGALLANES MD 03/03/17 Pantoprazole* (Protonix*) 40 Mg Tablet.dr, 40 MG PO DAILY, #20 TAB Prov:JOHN MAGALLANES MD 03/03/17 Insulin Aspart* (Novolog Insulin Pen*) 100 Unit/Ml Soln, 4 UNIT SC WITH MEALS for 30 Days Prov:ANTHONY JOYA 11/10/16 Metoprolol Tartrate* (Lopressor*) 25 Mg Tab, 75 MG PO BID, #60 TAB Prov:ANTHONY JOYA 11/10/16 Reported Medications Ibuprofen* (Advil*) 200 Mg Capsule, 600 MG PO Q6H Y for PAIN, CAP 03/03/17 Cholecalciferol (Vitamin D3) 5,000 Unit Tablet, 5000 UNIT PO DAILY, TAB 03/03/17 Valsartan-Hydrochlorothiazide (Valsartan-HCTZ) 320-12.5 Mg Tablet, 1 TAB PO DAILY, #30 TAB 03/03/17 Glyburide/Metformin HCl (Glucovance 5-500 mg Tablet) 1 Each Tablet, 1 EACH PO DAILY, TAB 03/03/17 Insulin Glargine* (Lantus*) 100 Unit/Ml Soln, 50 UNIT SC WITH BREAKFAST DINNE, # 1 VIAL 03/03/17 Tamsulosin Hcl* (Tamsulosin Hcl*) 0.4 Mg Cap.er.24h, 0.4 MG PO DAILY, CAP 11/08/16 Clopidogrel Bisulfate* (Clopidogrel Bisulfate*) 75 Mg Tablet, 75 MG PO DAILY, # 30 TAB 11/08/16 Rosuvastatin Calcium* (Crestor*) 10 Mg Tablet, 10 MG PO QHS, #30 TAB 11/08/16 Aspirin* (Aspirin* EC) 81 Mg Tablet.dr, 81 MG PO DAILY, TAB 11/08/16 Discontinued Scripts Ibuprofen* (Motrin*) 800 Mg Tab, 800 MG PO Q6, #20 TAB Prov:DARRELL BANKS PA-C 12/05/16 Hydrocodone/Acetaminophen ([place] 10-325 Tablet) 1 Each Tablet, 1 TAB PO Q6H Y for PAIN, #7 TAB Prov:DARRELL BANKS PA-C 12/05/16 Cyclobenzaprine Hcl* (Cyclobenzaprine Hcl*) 10 Mg Tablet, 10 MG PO TID, #15 TAB Prov:BERTIN LUIS PA-C 11/13/16 Naproxen* (Naprosyn*) 500 Mg Tablet, 500 MG PO BID for 7 Days, TAB Prov:BERTIN LUIS PA-C 11/13/16 Methylprednisolone* (Medrol* DOSE PACK) 4 Mg/Dose-Pack Tab.ds.pk, 4 MG PO . DIRECTED for 5 Days, PACKET Prov:BERTIN LUIS PA-C 11/13/16 Hydrocodone/Acetaminophen ([place] 10-325 Tablet) 1 Each Tablet, 1 TAB PO Q6H Y for PAIN, #20 TAB Prov:BERTIN LUIS PA-C 11/13/16 Insulin Glargine* (Lantus*) 100 Unit/Ml Soln, 15 UNIT SC QAM for 30 Days Prov:ANTHONY JOYA 11/10/16 Allergies Allergies: Coded Allergies: No Known Allergy (Unverified , 11/08/16) PMhx/Soc History of Surgery: Yes (TONSILLECTOMY, SINUS SURGERY ) Anesthesia Reaction: No Hx Neurological Disorder: No Hx Respiratory Disorders: No Hx Cardiac Disorders: Yes (HTN, [place] 08/2015) Hx Psychiatric Problems: No Hx Miscellaneous Medical Probl: Yes (heart cath . hypertension. diabetic) Hx Alcohol Use: No Hx Substance Use: No Hx Tobacco Use: No Physical Exam Vitals Vital Signs Date Time Temp Pulse Resp B/P Pulse Ox O2 Delivery O2 Flow Rate FiO2 03/03/17 20:40 98.1 91 20 144/71 95 Physical Exam Const: No acute distress. Head: Atraumatic. Eyes: Normal Conjunctiva. ENT: Normal External Ears, Nose and Mouth. Neck: Full range of motion. No meningismus. Resp: Clear to auscultation bilaterally. Cardio: Regular rate and rhythm, no murmurs. Abd: Soft, non distended, normal bowel sounds, mild right upper quadrant tenderness, no right lower quadrant, rigidity, rebound, CVA tenderness Skin: No petechiae or rashes. Back: No midline or flank tenderness. Ext: No cyanosis, or edema. Neur: Awake and alert. No focal deficit Psych: Normal Mood and Affect. Result Diagram: 03/03/17211403/03/172114 Results 24 hrs Laboratory Tests Test 03/03/17 21:15 03/03/17 21:28 White Blood Count 8.810^3/ul Red Blood Count 4.9010^6/ul Hemoglobin 14.5g/dl Hematocrit 41.9% Mean Corpuscular Volume 85.5fl Mean Corpuscular Hemoglobin 29.6pg Mean Corpuscular Hemoglobin Concent 34.6g/dl Red Cell Distribution Width 12.0% Platelet Count 52997^3/UL Mean Platelet Volume 9.9fl Neutrophils % 65.6% Lymphocytes % 21.6% Monocytes % 9.3% Eosinophils % 1.8% Basophils % 0.7% Nucleated Red Blood Cells % 0.0/100WBC Neutrophils # 5.810^3/ul Lymphocytes # 1.910^3/ul Monocytes # 0.810^3/ul Eosinophils # 0.210^3/ul Basophils # 0.110^3/ul Nucleated Red Blood Cells # 0.010^3/ul Sodium Level 136mmol/L Potassium Level 4.0mmol/L Chloride Level 98mmol/L Carbon Dioxide Level 29mmol/L Anion Gap 13 Blood Urea Nitrogen 14mg/dl Creatinine 0.83mg/dl Glucose Level 186mg/dl Calcium Level 9.6mg/dl Total Bilirubin 0.6mg/dl Direct Bilirubin 0.00mg/dl Indirect Bilirubin 0.6mg/dl Aspartate Amino Transf (AST/SGOT) 25IU/L Alanine Aminotransferase (ALT/SGPT) 46IU/L Alkaline Phosphatase 71IU/L Total Protein 7.8g/dl Albumin 4.5g/dl Globulin 3.30g/dl Albumin/Globulin Ratio 1.36 Lipase 61U/L Bedside Urine pH (LAB) 5.5 Bedside Urine Protein (LAB) Negative Bedside Urine Glucose (UA) 0.1% Bedside Urine Ketones (LAB) Negative Bedside Urine Blood Trace-intact Bedside Urine Nitrite (LAB) Negative Bedside Urine Leukocyte Esterase (L Negative Current Medications Medications (Trade) Dose Ordered Sig/Lorenzo Route PRN Reason Start Time Stop Time Status Last Admin Dose Admin Morphine Sulfate (morphine) 4 mg ONCE STAT IV 03/03/17 21:34 03/03/17 21:36 DC 03/03/17 21:48 Ondansetron HCl (Zofran Inj) 4 mg ONCE STAT IV 03/03/17 21:34 03/03/17 21:36 DC 03/03/17 21:48 Procedures/[place] [id number] Radiology Main Line: [phone] DIAGNOSTIC IMAGING REPORT Patient: EDITH ARORA : 1955 Age: 61 Sex: M MR #: [id number] DOS: 03/03/172133 Ordering MD: JOHN MAGALLANES MD Location: E/R Room/Bed: PROCEDURE: US Abdomen. CLINICAL INDICATION: abdominal pain TECHNIQUE: Multiple real-time images were acquired of the patient's right upper quadrant abdomen and retroperitoneum utilizing a high resolution transducer. COMPARISON: 11/08/16 FINDINGS: The liver demonstrates increased echogenicity. The liver is enlarged in size and no focal solid lesions are seen. The liver measures 21.7 cm in length. The portal vein is patent with normal direction of flow. No intrahepatic biliary dilatation is seen. No gallstones are identified within the gallbladder. There is no pericholecystic fluid or gallbladder wall thickening. The common bile duct measures 3 mm in maximal dimension. The pancreas is not seen. No free fluid is identified. The right kidney is normal in size, and demonstrate normal echogenicity and cortical thickness. The right kidney measures 12.2 cm in long dimension. There is no evidence of hydronephrosis. There are no kidney stones. RPTAT: AA IMPRESSION: Mild hepatomegaly with diffuse fatty infiltration of the liver. No evidence of gallstones. .Primo Farooq MD, MD Date Time Electronically viewed and signed by .Primo Farooq MD, on 03/03/2017 22: 05 .S/ CC: JOHN MAGALLANES MD MEDICAL MAKING DECISION: The patient is a 61-year-old male, presenting to the ER because of abdominal pain of unclear etiology, most likely due to hepatic steatosis. He was treated with morphine 4 mg IV for pain, Zofran 4 mg IV for nausea with good response. The differential diagnoses considered include but are not limited to cholelithiasis, cholecystitis, cystitis, pancreatitis, hepatitis, gastritis, peptic ulcer disease, gastric ulcer, appendicitis, diverticulitis, cholangitis, choledocholithiasis, partial small bowel obstruction. Departure Diagnosis: Primary Impression: Abdominal pain Additional Impression: Hepatic steatosis Condition: Good Comments He was discharged with Protonix and [place] I discussed the findings with the patient. 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 JOHN MAGALLANES MD March 03, 2017 21:08
[2017-03-03 21:27] LABS: URINE BLOOD (Dip) POC Trace-intact (NEGATIVE)
[2017-03-03] MEDS ORDERED: ONDANSETRON 4 MG INJ IV STA (21:34)
[2017-03-03] MEDS ORDERED: morphine 4 MG/ML VIAL IV STA (21:34)
[2017-03-03 21:44] LABS: ADD SCAN DIFF NO
[2017-03-03 21:45] LABS: BASOPHIL # 0.1 10^3/ul (0.0-0.1); BASOPHILS % 0.7 % (0.0-2.0); EOSINOPHILS # 0.2 10^3/ul (0.0-0.5); EOSINOPHILS % 1.8 % (0.0-7.0); HEMATOCRIT 41.9 % (42.0-52.0); HEMOGLOBIN 14.5 g/dl (14.0-18.0); LYMPHOCYTES # 1.9 10^3/ul (0.8-2.9); LYMPHOCYTES % 21.6 % (15.0-51.0); MEAN CORPUSCULAR HEMOGLOBIN 29.6 pg (29.0-33.0); MEAN CORPUSCULAR HGB CONC 34.6 g/dl (32.0-37.0); MEAN CORPUSCULAR VOLUME 85.5 fl (82.0-101.0); MEAN PLATELET VOLUME 9.9 fl (7.4-10.4); MONOCYTE # 0.8 10^3/ul (0.3-0.9); MONOCYTES % 9.3 % (0.0-11.0); NEUTROPHIL # 5.8 10^3/ul (1.6-7.5); NEUTROPHILS % 65.6 % (39.0-77.0); PLATELET COUNT 300 10^3/UL (140-415); WHITE BLOOD COUNT 8.8 10^3/ul (4.8-10.8)
[2017-03-03 22:02] LABS: ALBUMIN 4.5 g/dl (3.3-4.9); ALBUMIN/GLOBULIN RATIO 1.36; BILIRUBIN,INDIRECT 0.6 mg/dl (0-1.1); BILIRUBIN,TOTAL 0.6 mg/dl (0.2-1.3); CALCIUM 9.6 mg/dl (8.4-10.2); CREATININE 0.83 mg/dl (0.61-1.24); TOTAL PROTEIN 7.8 g/dl (6.1-8.1)
--- NOTE | 2017-03-03 22:06 | RADRPT ---
PROCEDURE: US Abdomen. CLINICAL INDICATION: abdominal pain TECHNIQUE: Multiple real-time images were acquired of the patient's right upper quadrant abdomen a nd retroperitoneum utilizing a high resolution transducer. COMPARISON: 11/08/16 FINDINGS: The liver demonstrates increased echogenicity. The liver is enlarged in size and no focal solid les ions are seen. The liver measures 21.7 cm in length. The portal vein is patent with normal direction of flow. No intrahepatic biliary dilatation is seen. No gallstones are identified within the gallbladder. There is no pericholecystic fluid or gallbladd er wall thickening. The common bile duct measures 3 mm in maximal dimension. The pancreas is not seen. No free fluid is identified. The right kidney is normal in size, and demonstrate normal echogenicity and cortical thickness. The right kidney measures 12.2 cm in long dimension. There is no evidence of hydronephrosis. There are no kidney stones. RPTAT: AA IMPRESSION: Mild hepatomegaly with diffuse fatty infiltration of the liver. No evidence of gallstones. .Primo Farooq MD, Date Time Electronically viewed and signed by .Primo Farooq MD, on 03/03/2017 22:05 .S/
[2017-03-03] MEDS ORDERED: LANT3I SC (22:26)
[2017-03-03] MEDS ORDERED: IBUP200C11 PO (22:30)
[2017-03-03] MEDS ORDERED: CHOL500010 PO (22:30)
[2017-03-03] MEDS ORDERED: VALS1TAB80 PO (22:30)
[2017-03-03] MEDS ORDERED: GLYB1TAB3 PO (22:30)
[2017-03-03] MEDS ORDERED: HYDR-906 PO (22:46)
[2017-03-03] MEDS ORDERED: PANT40TA3 PO (22:46)
[2017-03-03 23:11] VITALS: BP 126/67; PULSE 80; RESP 20; TEMP 98.1
== END 2017-03-03 23:11 | disposition home or self-care (01) ==
LOC: E/R 20:36
DX: R10.11 Right upper quadrant pain (principal); K76.0 Fatty (change of) liver, not elsewhere classified; I10 Essential (primary) hypertension; I25.10 Atherosclerotic heart disease of native coronary artery without angina pectoris; E11.9 Type 2 diabetes mellitus without complications; Z79.4 Long term (current) use of insulin; Z79.84 Long term (current) use of oral hypoglycemic drugs; Z79.82 Long term (current) use of aspirin
CPT/HCPCS: 36415; 76705; 80053; 81003; 83690; 85025; 93005; 96374; 96375; J2270; J2405; Z7502

== ENCOUNTER 2018-07-01 01:42 | Emergency (ER) | END 2018-07-01 02:09 | disposition left against medical advice (07) ==